=== PATIENT | male | born 1960 | race Hispanic/Latino ===

== ENCOUNTER → 2020-07-01 | Outpatient (CLI) | payer OTHER ==
[~2020-07-01] MED LIST: REGADENOSON 0.4 MG/5 ML PF SYG IVP SCH
== END | disposition home or self-care (01) ==
LOC: SHCH 07:46
PROVIDERS: ATTEND Internal Medicine Cardiovascular Disease
DX: I21.19 ST elevation (STEMI) myocardial infarction involving other coronary artery of inferior wall (principal); I21.29 ST elevation (STEMI) myocardial infarction involving other sites
CPT/HCPCS: 78452; 93017; 96374; A9500 ×2; J2785

== ENCOUNTER 2020-08-04 07:59 | Day surgery (SDC) | payer OTHER ==
[2020-08-02 12:47] LABS: BASOPHILS % (AUTO) 0.3 % (0.0-5.0); HEMATOCRIT 42.3 % (42-54); LYMPHOCYTES % (AUTO) 28.6 % (21.0-51.0); MEAN CORPUSCULAR HEMOGLOBIN 32.7 pg (27.0-33.0); MEAN CORPUSCULAR HGB CONC 36.2 g/dL (32.0-36.0); MEAN CORPUSCULAR VOLUME 90.4 fL (79-99); MONOCYTES % (AUTO) 8.9 % (3.0-13.0); NEUTROPHILS % (AUTO) 60.8 % (40.0-77.0); PLATELET COUNT (AUTO) 204 K/uL (130-400); RED BLOOD CELL COUNT(AUTO) 4.68 MIL/uL (4.50-6.20); RED CELL DISTRIBUTION WIDTH 13.2 % (11.0-15.5); WHITE BLOOD COUNT (AUTO) 9.1 K/uL (4.8-10.8)
[2020-08-02 13:03] LABS: INR 0.94 (0.85-1.15); PARTIAL THROMBOPLASTIN TIME 25.9 SEC (26.3-35.5); PROTHROMBIN TIME 10.2 SEC (9.6-11.6)
[2020-08-02 13:08] LABS: CREATININE 1.1 mg/dL (0.5-1.5); POTASSIUM 4.2 mmol/L (3.5-5.1)
[2020-08-02 13:25] LABS: APPEARANCE,URINE Clear (CLEAR); BILIRUBIN,URINE Negative (NEGATIVE); COLOR,URINE Yellow (YELLOW); GLUCOSE, URINE (UA) 250 mg/dL (NEGATIVE); KETONES,URINE Negative (NEGATIVE); LEUKOCYTE ESTERASE ,URINE Negative (NEGATIVE); NITRATE,URINE Negative (NEGATIVE); OCCULT BLOOD,URINE Negative (NEGATIVE); PROTEIN,URINE POS 2+ mg/dL (NEGATIVE)
[2020-08-02 14:11] LABS: BACTERIA,URINE Rare /HPF (None Seen); RBC,URINE 0-1 /HPF (0-1); SQUAMOUS EPITHELIAL CELL,UR Rare /HPF (0-2); WBC,URINE 0-1 /HPF (0-1)
[2020-08-03 11:49] VITALS: BP 163/80
--- NOTE | 2020-08-03 14:13 | NUR ---
ABnormal UA Elma Sears/Dr. Cobos was made aware of abnormal UA. No further orders given
[~2020-08-04] VITALS: Ht 188 cm; Wt 113.9 kg
[2020-08-04] VITALS (8 sets, daily range): BP systolic 135–153; BP diastolic 71–84
[2020-08-04] MEDS ORDERED: LORA10TA7 PO (10:35)
[2020-08-04] MEDS ORDERED: METO-409 PO (10:35)
[2020-08-04] MEDS ORDERED: TRAZ-187 PO (10:35)
[2020-08-04] MEDS ORDERED: LISI-613 PO (10:35)
[2020-08-04] MEDS ORDERED: NPH,100V11 SQ (10:35)
[2020-08-04] MEDS ORDERED: HYDR25TA PO (10:35)
[2020-08-04] MEDS ORDERED: TRAM50TA4 PO (10:35)
[2020-08-04] MEDS ORDERED: BUSP10TA3 PO (10:35)
[2020-08-04] MEDS ORDERED: GLIP5TAB11 PO ×2 (10:35)
[2020-08-04] MEDS ORDERED: METF-444 PO (10:35)
[2020-08-04] MEDS ORDERED: ATOR10TA69 PO (10:35)
[2020-08-04] MEDS ORDERED: AEC81 PO (10:35)
[2020-08-04] MEDS ORDERED: ALEN5TAB11 PO (10:35)
[2020-08-04] MEDS ORDERED: NITR0.4T50 SL (10:35)
[2020-08-04] MEDS ORDERED: METF-446 PO (10:35)
[2020-08-04] MEDS ORDERED: PROP150T28 PO (10:35)
[2020-08-04] MEDS ORDERED: POTA-9 PO (10:35)
[2020-08-04] MEDS ORDERED: SODIUM CHLORIDE 0.9% 1000ML 1,000 ML IV ONE (10:37)
[2020-08-04] MEDS ORDERED: IOHEXOL-350 50ML VIAL IV ONE (10:52)
[2020-08-04] MEDS ORDERED: IOHEXOL 350 MG/ML 100ML INFUS..BTL IV ONE (10:52)
[2020-08-04] MEDS ORDERED: LIDOCAINE HCL 2% 20ML ONE ×2 (10:52→11:08)
[2020-08-04] MEDS ORDERED: MIDAZOLAM HCL 1 MG/ML 2ML VIAL ONE (11:09)
[2020-08-04] MEDS ORDERED: GLUCAGON 1MG KIT 1 MG ML IM PRN (11:45)
[2020-08-04] MEDS ORDERED: DEXTROSE 50%-WATER 50 ML DISP.SYRIN IV PRN (11:45)
--- NOTE | 2020-08-04 14:10 | NUR ---
REPORT REPORT GIVEN TO JAI ORTIZ. PT SITE TO RIGHT GROIN SOFT TO TOUCH. DRY AND INTACT. NO BLEEDING, OOZING NOTED.
--- NOTE | 2020-08-04 14:30 | NUR ---
ACTIVITY: HOB ELEVATED 45 DEGRESS WITH NO COMPLAINTS OF NAUSEA OR DIZZINESS
--- NOTE | 2020-08-04 15:30 | NUR ---
ACTIVITY: AMBULATED TO BATHROOM WITHOUT COMPLAINING OF DIZZINESS AND VOIDED QS IN TOILET. ASSISTED BACK TO BED TO SITTING POSITION.
== END 2020-08-04 16:00 | disposition home or self-care (01) ==
LOC: DAH 07:59
PROVIDERS: ATTEND Internal Medicine Cardiovascular Disease
DX: R94.39 Abnormal result of other cardiovascular function study (principal); I47.1 Supraventricular tachycardia; I25.10 Atherosclerotic heart disease of native coronary artery without angina pectoris; I10 Essential (primary) hypertension; E78.5 Hyperlipidemia, unspecified; E11.9 Type 2 diabetes mellitus without complications; Z79.4 Long term (current) use of insulin; Z79.84 Long term (current) use of oral hypoglycemic drugs; Z79.01 Long term (current) use of anticoagulants; Z79.899 Other long term (current) drug therapy; Z88.0 Allergy status to penicillin
CPT/HCPCS: 36415; 71045; 80048; 81001; 82948 ×2; 85025; 85610; 85730; 93005; 93458; A4215; A4216; A4221; A4222; A4223 ×3; A4606; A4663; C1760; C1894; J1644; J2250; J3490 ×2; J7030; Q9965; Q9967 ×2; 99156; 99157

== ENCOUNTER 2021-07-28 13:00 | Inpatient (IN) | payer OTHER ==
[~2021-07-28] VITALS: Ht 188 cm; Wt 112.0 kg
[2021-07-28 09:45] LABS: BASOPHILS % (AUTO) 0.5 % (0.0-5.0); EOSINOPHILS % (AUTO) 1.2 % (0.0-8.0); HEMATOCRIT 40.4 % (42-54); LYMPHOCYTES % (AUTO) 28.8 % (21.0-51.0); MEAN CORPUSCULAR HEMOGLOBIN 32.5 pg (27.0-33.0); MEAN CORPUSCULAR HGB CONC 35.9 g/dL (32.0-36.0); MEAN CORPUSCULAR VOLUME 90.6 fL (79-99); MONOCYTES % (AUTO) 9.2 % (3.0-13.0); NEUTROPHILS % (AUTO) 59.8 % (40.0-77.0); PLATELET COUNT (AUTO) 186 K/uL (130-400); RED BLOOD CELL COUNT(AUTO) 4.46 MIL/uL (4.50-6.20); WHITE BLOOD COUNT (AUTO) 8.3 K/uL (4.8-10.8)
[2021-07-28 10:06] LABS: INR 1.05 (0.85-1.15); PROTHROMBIN TIME 11.4 SEC (9.6-11.6)
[2021-07-28 10:16] LABS: APPEARANCE,URINE Clear (CLEAR); BILIRUBIN,URINE Negative (NEGATIVE); COLOR,URINE Yellow (YELLOW); GLUCOSE, URINE (UA) TRACE mg/dL (NEGATIVE); KETONES,URINE Negative (NEGATIVE); LEUKOCYTE ESTERASE ,URINE Negative (NEGATIVE); NITRATE,URINE Negative (NEGATIVE); OCCULT BLOOD,URINE Negative (NEGATIVE); PROTEIN,URINE POS 1+ mg/dL (NEGATIVE); UROBILINOGEN,URINE 0.2 mg/dL (0.2-1.0)
[2021-07-28 10:17] LABS: POTASSIUM 4.4 mmol/L (3.5-5.1)
[2021-07-28 10:24] LABS: BACTERIA,URINE Rare /HPF (None Seen); RBC,URINE None Seen /HPF (0-1); SQUAMOUS EPITHELIAL CELL,UR 0-2 /HPF (0-2); WBC,URINE None Seen /HPF (0-1)
[~2021-07-28 13:00] MED LIST changes: +AEC81 PO; +ATOR10TA69 PO; +BUSP10TA3 PO; +GLIP5TAB11 PO; +HYDR25TA PO; +LISI20TA24 PO; +LORA10TA7 PO; +METF-444 PO; +METF-446 PO; +METO-409 PO; +NPH,100V11 SQ; +POTA-9 PO; +PROP150T28 PO; -REGADENOSON 0.4 MG/5 ML PF SYG IVP SCH; +TRAM50TA4 PO
[2021-07-28 15:01] VITALS: BP 137/67
[2021-07-28] MEDS ORDERED: trazodone PO (16:12)
[2021-07-28] MEDS ORDERED: ISOSORBIDE MONO PO (16:14)
[2021-07-31] VITALS (20 sets, daily range): BP systolic 111–147; BP diastolic 58–85
[2021-07-31] MEDS ORDERED: 0.9%NACL 1000ML 1,000 ML IV ONE (09:29)
[2021-07-31] MEDS ORDERED: CLINDAMYCIN 900MG/6ML INJ ONE (09:29)
[2021-07-31] MEDS: CLINDAMYCIN IVPB 900MG/50ML 50 ML IV SCH ×2 (09:56→10:40)
[2021-07-31] MEDS ORDERED: SUCCINYLCHOLINE CHLORIDE 20 MG/ML 10 ML VIAL ONE (10:33)
[2021-07-31] MEDS ORDERED: LIDOCAINE PF 100MG/5ML (2%) SYRINGE 5ML ONE (10:33)
[2021-07-31] MEDS ORDERED: PROPOFOL 10 MG/ML 20ML VIAL IV ONE (10:33)
[2021-07-31] MEDS ORDERED: ROCURONIUM 10MG/1ML SYR 10 MG/ML ML ONE ×2 (10:34→11:28)
[2021-07-31] MEDS ORDERED: GLYCOPYRROLATE 1 MG/5 ML SYRINGE ONE (10:34)
[2021-07-31] MEDS ORDERED: NEOSTIGMINE 5MG/5ML SYR IV ONE (10:34)
[2021-07-31] MEDS ORDERED: MIDAZOLAM HCL 1 MG/ML 2ML VIAL ONE (10:34)
[2021-07-31] MEDS ORDERED: ONDANSETRON 4MG INJ ONE (10:34)
[2021-07-31] MEDS ORDERED: DEXAMETHASONE SOD PHOSPHATE 10MG/ML 1ML VIAL ONE (10:34)
[2021-07-31] MEDS ORDERED: FENTANYL CITRATE PF 50 MCG/1 ML 2ML VIAL ONE ×2 (10:35→12:54)
[2021-07-31] MEDS ORDERED: MEPERIDINE-PF 25 MG/ML SYG ONE ×3 (10:35→13:54)
[2021-07-31] MEDS ORDERED: TRANEXAMIC ACID 1000MG/10ML ONE ×2 (10:41→13:09)
[2021-07-31] MEDS ORDERED: EPHEDRINE SULFATE 50 MG/ML AMPULE ONE ×2 (10:55→13:40)
[2021-07-31] MEDS ORDERED: PHENYLEPHRINE HCL 10 MG/ML 1ML VIAL IV ONE (11:23)
[2021-07-31] MEDS ORDERED: LIDOCAINE HCL-MPF 1% 2ML VIAL IV PRN (13:00)
[2021-07-31] MEDS ORDERED: KETOROLAC 15MG/ML VIAL (15MG/ML) IV PRN (13:00)
[2021-07-31] MEDS ORDERED: CALCIUM CARB 500MG PO PRN (13:00)
[2021-07-31] MEDS: ACETAMINOPHEN 500 MG TABLET PO SCH ×2 (13:00→22:12)
[2021-07-31] MEDS ORDERED: OXYCODONE HCL 5 MG TAB PO PRN ×2 (13:00)
[2021-07-31] MEDS ORDERED: DiphenhydrAMINE HCL 50 MG/ML VIAL IVP PRN (13:00)
[2021-07-31] MEDS ORDERED: KCL 20 MEQ ERTAB PO PRN (13:00)
[2021-07-31] MEDS ORDERED: POTASSIUM CHLORIDE 10% ELIXIR 20 MEQ/15 ML UDCUP PO PRN (13:00)
[2021-07-31] MEDS ORDERED: POTASSIUM CHLORIDE 20MEQ/100ML 100 ML IV PRN (13:00)
[2021-07-31] MEDS: 0.9%NACL 1000ML 1,000 ML IV SCH ×2 (13:00→22:16)
[2021-07-31] MEDS ORDERED: TRAMADOL HCL 50 MG TABLET PO PRN (13:00)
[2021-07-31] MEDS ORDERED: ONDANSETRON 4MG INJ IVP PRN (13:00)
[2021-07-31] MEDS ORDERED: FERROUS FUMARATE 324 MG TABLET PO PRN (13:00)
[2021-07-31] MEDS ORDERED: KETOROLAC 30MG VIAL (30MG/ML) ONE (13:26)
[2021-07-31] MEDS ORDERED: ARTIFICAL TEARS SOL 15 ML OU PRN (16:00)
[2021-07-31] MEDS: INSULIN HUMULIN R 100 UNIT/ML 3ML SQ SCH ×2 (16:54→22:22)
[2021-07-31] MEDS ORDERED: CLINDAMYCIN IVPB 900MG/50ML 50 ML IVPB SCH (18:00)
[2021-07-31] MEDS: TRAZODONE HCL 50 MG TAB PO SCH (22:05)
[2021-07-31] MEDS: BUSPIRONE HCL 5 MG TABLET PO SCH (22:05)
[2021-07-31] MEDS: CELECOXIB 200 MG CAP PO SCH (22:05)
[2021-07-31] MEDS: ASPIRIN 81 MG EC TAB PO SCH (22:06)
[2021-07-31] MEDS: METFORMIN HCL 500 MG TABLET PO SCH (22:06)
[2021-07-31] MEDS: FAMOTIDINE 20MG TAB PO SCH (22:06)
[2021-07-31] MEDS: GLIPIZIDE 5 MG TABLET PO SCH (22:07)
[2021-07-31] MEDS: PREGABALIN 25 MG CAP PO SCH (22:07)
[2021-07-31] MEDS: PROPAFENONE HCL 150 MG TABLET PO SCH (22:07)
[2021-07-31] MEDS: CLINDAMYCIN IVPB 900MG/50ML 50 ML IVPB SCH (22:16)
[2021-07-31] MEDS: INSULIN NPH 100 UNIT/ML 3ML SQ SCH (22:21)
[2021-08-01 04:04] VITALS: BP 109/58
[2021-08-01] MEDS: ACETAMINOPHEN 500 MG TABLET PO SCH ×3 (04:49→23:08)
[2021-08-01] MEDS: CLINDAMYCIN IVPB 900MG/50ML 50 ML IVPB SCH (04:49)
[2021-08-01 05:26] LABS: HEMATOCRIT 29.4 % (42-54); MEAN CORPUSCULAR HEMOGLOBIN 32.8 pg (27.0-33.0); MEAN CORPUSCULAR HGB CONC 36.4 g/dL (32.0-36.0); MEAN CORPUSCULAR VOLUME 90.2 fL (79-99); PLATELET COUNT (AUTO) 169 K/uL (130-400); RED BLOOD CELL COUNT(AUTO) 3.26 MIL/uL (4.50-6.20); RED CELL DISTRIBUTION WIDTH 12.8 % (11.0-15.5)
[2021-08-01 05:45] LABS: CREATININE 1.2 mg/dL (0.5-1.5); POTASSIUM 4.3 mmol/L (3.5-5.1)
[2021-08-01 05:56] LABS: PLATELET MORPHOLOGY LARGE PLTS PRESENT
[2021-08-01] MEDS: INSULIN HUMULIN R 100 UNIT/ML 3ML SQ SCH ×4 (06:42→21:00)
[2021-08-01 07:30] VITALS: BP 95/48
[2021-08-01] MEDS: POTASSIUM CHLORIDE 10MEQ SR TAB PO SCH (08:15)
[2021-08-01] MEDS: LORATADINE 10 MG TABLET PO SCH (08:15)
[2021-08-01] MEDS: POLYETHYLENE GLYCOL 3350 17 GM POWD.PACK PO SCH (08:15)
[2021-08-01] MEDS: CELECOXIB 200 MG CAP PO SCH ×2 (08:15→23:07)
[2021-08-01] MEDS: TAMSULOSIN HCL 0.4 MG CAP.ER.24H PO SCH (08:16)
[2021-08-01] MEDS: BUSPIRONE HCL 5 MG TABLET PO SCH ×2 (08:16→23:07)
[2021-08-01] MEDS: ASPIRIN 81 MG EC TAB PO SCH ×2 (08:16→23:05)
[2021-08-01] MEDS: FAMOTIDINE 20MG TAB PO SCH ×2 (08:16→23:08)
[2021-08-01] MEDS: METFORMIN HCL 500 MG TABLET PO SCH ×2 (08:17→23:07)
[2021-08-01] MEDS: ATORVASTATIN 10 MG TABLET PO SCH (08:17)
[2021-08-01] MEDS: PREGABALIN 25 MG CAP PO SCH ×2 (08:17→23:06)
[2021-08-01] MEDS: GLIPIZIDE 5 MG TABLET PO SCH ×2 (08:17→23:06)
[2021-08-01] MEDS: HYDROCHLOROTHIAZIDE 25 MG TABLET PO SCH (08:17)
[2021-08-01] MEDS: PROPAFENONE HCL 150 MG TABLET PO SCH ×2 (08:18→23:07)
[2021-08-01] MEDS: 0.9%NACL 1000ML 1,000 ML IV SCH (08:18)
[2021-08-01] MEDS: LISINOPRIL 20 MG TABLET PO SCH (08:18)
[2021-08-01] MEDS: ISOSORBIDE MONO 30MG SR TAB PO SCH (08:18)
[2021-08-01] MEDS: METOPROLOL SUCCINATE 50 MG TAB.SR.24H PO SCH (08:18)
[2021-08-01] MEDS ORDERED: ASPIRIN 81 MG EC TAB PO SCH (09:00)
[2021-08-01 11:00] VITALS: BP 101/53
[2021-08-01 16:00] VITALS: BP 114/62
[2021-08-01 20:10] VITALS: BP 119/65
[2021-08-01] MEDS: TRAZODONE HCL 50 MG TAB PO SCH (23:06)
[2021-08-01] MEDS: INSULIN NPH 100 UNIT/ML 3ML SQ SCH (23:17)
[2021-08-01 23:45] VITALS: BP 138/68
[2021-08-02 04:08] VITALS: BP 132/67
[2021-08-02] MEDS: INSULIN HUMULIN R 100 UNIT/ML 3ML SQ SCH ×3 (05:56→16:30)
[2021-08-02] MEDS: ACETAMINOPHEN 500 MG TABLET PO SCH ×2 (05:59→12:41)
[2021-08-02 07:30] VITALS: BP 132/52
[2021-08-02] MEDS: POLYETHYLENE GLYCOL 3350 17 GM POWD.PACK PO SCH (08:17)
[2021-08-02] MEDS: PREGABALIN 25 MG CAP PO SCH (08:17)
[2021-08-02] MEDS: TAMSULOSIN HCL 0.4 MG CAP.ER.24H PO SCH (08:18)
[2021-08-02] MEDS: CELECOXIB 200 MG CAP PO SCH (08:18)
[2021-08-02] MEDS: FAMOTIDINE 20MG TAB PO SCH (08:19)
[2021-08-02] MEDS: BUSPIRONE HCL 5 MG TABLET PO SCH (08:19)
[2021-08-02] MEDS: LORATADINE 10 MG TABLET PO SCH (08:19)
[2021-08-02] MEDS: ASPIRIN 81 MG EC TAB PO SCH (08:19)
[2021-08-02] MEDS: ATORVASTATIN 10 MG TABLET PO SCH (08:20)
[2021-08-02] MEDS: METFORMIN HCL 500 MG TABLET PO SCH (08:20)
[2021-08-02] MEDS: POTASSIUM CHLORIDE 10MEQ SR TAB PO SCH (08:20)
[2021-08-02] MEDS: PROPAFENONE HCL 150 MG TABLET PO SCH (08:21)
[2021-08-02] MEDS: GLIPIZIDE 5 MG TABLET PO SCH (08:21)
[2021-08-02] MEDS: HYDROCHLOROTHIAZIDE 25 MG TABLET PO SCH (09:00)
[2021-08-02] MEDS: LISINOPRIL 20 MG TABLET PO SCH (09:00)
[2021-08-02] MEDS: METOPROLOL SUCCINATE 50 MG TAB.SR.24H PO SCH (09:00)
[2021-08-02] MEDS: ISOSORBIDE MONO 30MG SR TAB PO SCH (09:00)
[2021-08-02 11:00] VITALS: BP 115/67
[2021-08-02 16:00] VITALS: BP 117/60
[2021-08-02] MEDS ORDERED: HYDR-4060 PO (16:10)
[2021-08-02] MEDS ORDERED: AEC81 PO (16:10)
[2021-08-03] MEDS ORDERED: BISACODYL 10 MG SUPP.RECT RC PRN (13:00)
== END 2021-08-02 19:00 | disposition home health service (06) | DRG 470 ==
LOC: EDSTATUS 13:00 → DAHIP 07-31 07:39 → 3AH 07-31 15:18
PROVIDERS: ADMIT Orthopaedic Surgery; ATTEND Orthopaedic Surgery
PROC: 0SRD0J9 Replacement of Left Knee Joint with Synthetic Substitute, Cemented, Open Approach (ICD-10-PCS; principal; 2021-07-31 11:28)
DX: M17.32 Unilateral post-traumatic osteoarthritis, left knee (principal); I48.0 Paroxysmal atrial fibrillation; E11.9 Type 2 diabetes mellitus without complications; I25.10 Atherosclerotic heart disease of native coronary artery without angina pectoris; I10 Essential (primary) hypertension; E78.5 Hyperlipidemia, unspecified; M17.11 Unilateral primary osteoarthritis, right knee; R26.89 Other abnormalities of gait and mobility; M23.8X2 Other internal derangements of left knee; G89.29 Other chronic pain; Z20.822 Contact with and (suspected) exposure to COVID-19; Z96.9 Presence of functional implant, unspecified; D64.9 Anemia, unspecified; Z88.0 Allergy status to penicillin; Z98.890 Other specified postprocedural states; Z83.3 Family history of diabetes mellitus; Z82.49 Family history of ischemic heart disease and other diseases of the circulatory system
CPT/HCPCS: 36415; 80048; 81001; 82948; 85025; 85027; 85610; 87088; 87635; 87641; 88305; 88311; 97039; A4344; G0378; J0330; J1100; J1815; J1885; J2001; J2175; J2250; J2370; J2405; J2704; J2710; J3010; J3490; J7030

== ENCOUNTER 2022-05-30 17:59 | Inpatient (IN) | payer OTHER ==
[~2022-05-30] VITALS: Ht 188 cm; Wt 104.3 kg
[~2022-05-30 17:59] MED LIST changes: +HYDR-4060 PO; +ISOSORBIDE MONO PO; +POTA-10 PO; -POTA-9 PO; +trazodone PO
[2022-05-30] MEDS ORDERED: NITROGLYCERIN 1GM OINT 1 INCH/1GM TD ONE ×2 (18:22→19:00)
[2022-05-30 18:57] LABS: BASOPHILS % (AUTO) 0.5 % (0.0-5.0); MEAN CORPUSCULAR HEMOGLOBIN 32.3 pg (27.0-33.0); MEAN CORPUSCULAR HGB CONC 36.4 g/dL (32.0-36.0); MEAN CORPUSCULAR VOLUME 88.8 fL (79-99); MONOCYTES % (AUTO) 8.6 % (3.0-13.0); NEUTROPHILS % (AUTO) 55.6 % (40.0-77.0); PLATELET COUNT (AUTO) 195 K/uL (130-400); RED BLOOD CELL COUNT(AUTO) 4.73 MIL/uL (4.50-6.20); WHITE BLOOD COUNT (AUTO) 10.6 K/uL (4.8-10.8)
[2022-05-30 19:10] LABS: CREATININE 0.9 mg/dL (0.5-1.5); POTASSIUM 3.2 mmol/L (3.5-5.1)
[2022-05-30 19:19] LABS: ALBUMIN 3.8 g/dL (3.5-5.0); MAGNESIUM 1.8 mg/dL (1.80-2.40); TOTAL PROTEIN, SERUM 6.8 g/dL (6.0-8.3)
[2022-05-30 19:25] LABS: APPEARANCE,URINE Clear (CLEAR); BILIRUBIN,URINE Small (NEGATIVE); COLOR,URINE Dark Yellow (YELLOW); GLUCOSE, URINE (UA) Negative (NEGATIVE); KETONES,URINE Trace mg/dL (NEGATIVE); LEUKOCYTE ESTERASE ,URINE Negative (NEGATIVE); NITRATE,URINE Negative (NEGATIVE); OCCULT BLOOD,URINE Negative (NEGATIVE); PH,URINE 5.5 (5.0-8.0); PROTEIN,URINE 300 mg/dL (NEGATIVE)
[2022-05-30 19:27] LABS: B-TYPE NATRIURETIC PEPTIDE 111 pg/mL (0-100)
[2022-05-30 19:51] LABS: INR 0.97 (0.85-1.15); PROTHROMBIN TIME 10.6 SEC (9.6-11.6)
[2022-05-30 19:52] LABS: PARTIAL THROMBOPLASTIN TIME 26.5 SEC (26.3-35.5)
[2022-05-30 20:13] LABS: BACTERIA,URINE None Seen /HPF (None Seen); MUCUS,URINE Rare LPF (None Seen); RBC,URINE None Seen /HPF (0-1); SQUAMOUS EPITHELIAL CELL,UR Rare /HPF (0-2); WBC,URINE None Seen /HPF (0-1)
[2022-05-30] MEDS: FAMOTIDINE 20MG VIAL IV SCH (20:55)
[2022-05-30] MEDS ORDERED: ASPIRIN 81MG CHEW TAB PO ONE (21:00)
[2022-05-30] MEDS ORDERED: ACETAMINOPHEN 325 MG TAB PO PRN (21:00)
[2022-05-30] MEDS ORDERED: CLONIDINE HCL 0.1 MG TABLET PO PRN (21:00)
[2022-05-30] MEDS ORDERED: MORPHINE 2 MG SYG IV PRN (21:00)
[2022-05-30] MEDS: NITROGLYCERIN 1GM OINT 1 INCH/1GM TD SCH (21:00)
[2022-05-30] MEDS ORDERED: ZOLPIDEM TARTRATE 5 MG TAB PO PRN (21:00)
[2022-05-30] MEDS ORDERED: ONDANSETRON 4MG INJ IV PRN (21:00)
[2022-05-30] MEDS ORDERED: MORPHINE 4 MG SYG IV PRN (21:00)
[2022-05-30] MEDS ORDERED: GLIP5TAB11 PO (21:07)
[2022-05-30] MEDS ORDERED: METO-409 PO (21:07)
[2022-05-30] MEDS ORDERED: PROP150T28 PO (21:07)
[2022-05-30] MEDS ORDERED: ISOS10TA8 PO (21:07)
[2022-05-30] MEDS ORDERED: SERT-439 PO (21:07)
[2022-05-30] MEDS ORDERED: LORA10TA7 PO (21:07)
[2022-05-30] MEDS ORDERED: ASPI-1197 PO (21:07)
[2022-05-30] MEDS ORDERED: TRAM50TA4 PO (21:07)
[2022-05-30] MEDS ORDERED: BUSP15TA3 PO (21:07)
[2022-05-30] MEDS ORDERED: TRAZ-187 PO (21:07)
[2022-05-30] MEDS ORDERED: ATOR10 PO (21:07)
[2022-05-30] MEDS ORDERED: METF-446 PO (21:07)
[2022-05-30] MEDS ORDERED: TRAMADOL HCL 50 MG TABLET PO PRN (21:30)
[2022-05-30] MEDS ORDERED: HYDRALAZINE 20MG/ML VIAL ONE (22:20)
[2022-05-30] MEDS ORDERED: HYDRALAZINE 20MG/ML VIAL IV ONE (22:30)
[2022-05-31] MEDS ORDERED: POTASSIUM CHLORIDE 10% ELIXIR 20 MEQ/15 ML UDCUP PO PRN
[2022-05-31] MEDS ORDERED: POTASSIUM CHLORIDE 20MEQ/100ML 100 ML IV PRN
[2022-05-31] MEDS ORDERED: LIDOCAINE HCL-MPF 1% 2ML VIAL IV PRN
[2022-05-31] MEDS ORDERED: POTASSIUM BICARB/CIT AC 25 MEQ TABLET.EFF PO ONE
[2022-05-31] MEDS ORDERED: KCL 20 MEQ ERTAB PO PRN
[2022-05-31] MEDS: NITROGLYCERIN 1GM OINT 1 INCH/1GM TD SCH (05:27)
[2022-05-31 06:01] LABS: BASOPHILS % (AUTO) 0.5 % (0.0-5.0); EOSINOPHILS % (AUTO) 1.2 % (0.0-8.0); HEMATOCRIT 40.2 % (42-54); LYMPHOCYTES % (AUTO) 30.2 % (21.0-51.0); MEAN CORPUSCULAR HEMOGLOBIN 32.7 pg (27.0-33.0); MEAN CORPUSCULAR HGB CONC 36.8 g/dL (32.0-36.0); MEAN CORPUSCULAR VOLUME 88.7 fL (79-99); MONOCYTES % (AUTO) 10.1 % (3.0-13.0); NEUTROPHILS % (AUTO) 57.6 % (40.0-77.0); PLATELET COUNT (AUTO) 176 K/uL (130-400); RED BLOOD CELL COUNT(AUTO) 4.53 MIL/uL (4.50-6.20); RED CELL DISTRIBUTION WIDTH 13.1 % (11.0-15.5); WHITE BLOOD COUNT (AUTO) 9.4 K/uL (4.8-10.8)
[2022-05-31 06:08] LABS: HEMOGLOBIN A1C 5.9 % (4.0-6.0)
[2022-05-31 06:11] LABS: CREATININE 0.8 mg/dL (0.5-1.5); MAGNESIUM 1.8 mg/dL (1.80-2.40); POTASSIUM 3.4 mmol/L (3.5-5.1)
[2022-05-31] MEDS: INSULIN HUMULIN R 100 UNIT/ML 3ML SQ SCH ×3 (07:20→16:30)
[2022-05-31 08:20] VITALS: BP 170/79
[2022-05-31] MEDS: FAMOTIDINE 20MG VIAL IV SCH (08:25)
[2022-05-31] MEDS ORDERED: MAGNESIUM OXIDE 400 MG TABLET PO SCH (08:30)
[2022-05-31] MEDS ORDERED: ISOSORBIDE MONONITRATE 15 MG PO SCH (09:00)
[2022-05-31] MEDS ORDERED: ENOXAPARIN SODIUM 40 MG/0.4 ML SYRINGE SQ SCH (09:00)
[2022-05-31] MEDS ORDERED: ISOSORBIDE MONO 30MG SR TAB PO SCH (09:00)
[2022-05-31] MEDS ORDERED: PROPAFENONE HCL 150 MG TABLET PO SCH (09:00)
[2022-05-31] MEDS ORDERED: NON-FORMULARY MEDICATION 1 EACH (Metoprolol Succinate 100 MG) PO SCH (09:00)
[2022-05-31] MEDS ORDERED: NON-FORMULARY MEDICATION 1 EACH (Buspirone HCl 15 MG) PO SCH (09:00)
[2022-05-31] MEDS ORDERED: BUSPIRONE HCL 5 MG TABLET PO SCH (09:00)
[2022-05-31] MEDS ORDERED: ASPIRIN 81MG CHEW TAB PO SCH (09:00)
[2022-05-31] MEDS ORDERED: METOPROLOL SUCCINATE 50 MG TAB.SR.24H PO SCH (09:00)
[2022-05-31] MEDS ORDERED: KCL 20 MEQ ERTAB PO SCH (09:30)
[2022-05-31 09:50] VITALS: BP 134/64
[2022-05-31 12:18] VITALS: BP 130/70
[2022-05-31 16:00] VITALS: BP 158/80
[2022-05-31] MEDS ORDERED: GLIP5TAB11 PO (17:35)
[2022-05-31] MEDS ORDERED: TRAZODONE HCL 100 MG TABLET PO SCH (21:00)
[2022-05-31] MEDS ORDERED: SERTRALINE HCL 50 MG TABLET PO SCH (21:00)
[2022-05-31] MEDS ORDERED: ATORVASTATIN 10 MG TABLET PO SCH (21:00)
== END 2022-05-31 18:30 | disposition home or self-care (01) | DRG 206 ==
LOC: EDH 17:59 → EDHIP 20:31 → 3AH 05-31 08:00
PROVIDERS: ADMIT Internal Medicine; ATTEND Internal Medicine
DX: M94.0 Chondrocostal junction syndrome [Tietze] (principal); E87.6 Hypokalemia; I10 Essential (primary) hypertension; E78.5 Hyperlipidemia, unspecified; I48.91 Unspecified atrial fibrillation; E78.00 Pure hypercholesterolemia, unspecified; I25.10 Atherosclerotic heart disease of native coronary artery without angina pectoris; Z83.3 Family history of diabetes mellitus; Z82.5 Family history of asthma and other chronic lower respiratory diseases; Z82.49 Family history of ischemic heart disease and other diseases of the circulatory system; Z96.652 Presence of left artificial knee joint; Z88.0 Allergy status to penicillin; E11.649 Type 2 diabetes mellitus with hypoglycemia without coma; Z79.4 Long term (current) use of insulin
CPT/HCPCS: 36415; 70450; 71045; 80048; 80053; 81001; 82550; 82948; 83036; 83735; 83880; 84100; 84145; 84484; 85025; 85610; 85730; 93005; G0378; J0360; J1650; J3490

== ENCOUNTER → 2022-08-02 | Outpatient (CLI) | payer OTHER ==
[~2022-08-02] MED LIST changes: -AEC81 PO; +ASPI-1197 PO; +ATOR10 PO; -ATOR10TA69 PO; -BUSP10TA3 PO; +BUSP15TA3 PO; -HYDR-4060 PO; -HYDR25TA PO; +ISOS10TA8 PO; -ISOSORBIDE MONO PO; -LISI20TA24 PO; -METF-444 PO; -NPH,100V11 SQ; -POTA-10 PO; +SERT-439 PO; +TRAZ-187 PO; -trazodone PO
== END | disposition home or self-care (01) ==
LOC: OIH 13:07
PROVIDERS: ATTEND Internal Medicine Cardiovascular Disease
DX: I48.0 Paroxysmal atrial fibrillation (principal)
CPT/HCPCS: 93306

== ENCOUNTER → 2022-10-29 | Outpatient (CLI) | payer OTHER ==
[2022-10-29 11:49] LABS: CREATININE 0.9 mg/dL (0.5-1.5)
== END | disposition home or self-care (01) ==
LOC: LAB 08:23
PROVIDERS: ATTEND Internal Medicine Cardiovascular Disease
DX: I48.0 Paroxysmal atrial fibrillation (principal)
CPT/HCPCS: 36415; 80048

== ENCOUNTER 2022-11-29 12:21 | Emergency (ER) | payer OTHER ==
[~2022-11-29] VITALS: Ht 188 cm; Wt 99.8 kg
[2022-11-29 12:46] LABS: BASOPHILS % (AUTO) 0.3 % (0.0-5.0); EOSINOPHILS % (AUTO) 1.3 % (0.0-8.0); HEMATOCRIT 42.1 % (42-54); LYMPHOCYTES % (AUTO) 31.9 % (21.0-51.0); MEAN CORPUSCULAR HEMOGLOBIN 30.9 pg (27.0-33.0); MEAN CORPUSCULAR HGB CONC 36.6 g/dL (32.0-36.0); MEAN CORPUSCULAR VOLUME 84.5 fL (79-99); MONOCYTES % (AUTO) 9.6 % (3.0-13.0); NEUTROPHILS % (AUTO) 56.7 % (40.0-77.0); PLATELET COUNT (AUTO) 206 K/uL (130-400); RED BLOOD CELL COUNT(AUTO) 4.98 MIL/uL (4.50-6.20); RED CELL DISTRIBUTION WIDTH 13.4 % (11.0-15.5); WHITE BLOOD COUNT (AUTO) 8.9 K/uL (4.8-10.8)
[2022-11-29 12:55] LABS: INR 0.99 (0.85-1.15); PROTHROMBIN TIME 10.8 SEC (9.6-11.6)
[2022-11-29 13:13] LABS: CREATININE 0.9 mg/dL (0.5-1.5); POTASSIUM 4.1 mmol/L (3.5-5.1)
[2022-11-29 13:17] LABS: TOTAL PROTEIN, SERUM 7.3 g/dL (6.0-8.3)
[2022-11-29] MEDS ORDERED: ALBUTEROL 0.083% 2.5 MG/3 ML INH IH ONE (14:30)
[2022-11-29] MEDS ORDERED: AZIT250T9 PO (14:37)
[2022-11-29] MEDS ORDERED: ALBU90AE2 IH (15:04)
[2022-11-29 15:07] VITALS: BP 128/83
[2022-11-29 15:09] LABS: APPEARANCE,URINE CLEAR (CLEAR); BILIRUBIN,URINE NEGATIVE (NEGATIVE); COLOR,URINE YELLOW (YELLOW); GLUCOSE, URINE (UA) NEGATIVE (NEGATIVE); KETONES,URINE NEGATIVE (NEGATIVE); LEUKOCYTE ESTERASE ,URINE NEGATIVE Leu/uL (NEGATIVE); NITRATE,URINE NEGATIVE (NEGATIVE); OCCULT BLOOD,URINE NEGATIVE (NEGATIVE); PROTEIN,URINE 200 mg/dL (NEGATIVE); UROBILINOGEN,URINE 0.2 mg/dL (0.2-1.0)
[2022-11-29 15:11] LABS: MUCUS,URINE RARE LPF (None Seen); WBC,URINE 0-1 /HPF (0-1)
== END 2022-11-29 15:25 | disposition home or self-care (01) ==
LOC: EDH 12:21
DX: J40 Bronchitis, not specified as acute or chronic (principal); I25.10 Atherosclerotic heart disease of native coronary artery without angina pectoris; E11.9 Type 2 diabetes mellitus without complications; E78.00 Pure hypercholesterolemia, unspecified; Z79.899 Other long term (current) drug therapy; Z79.82 Long term (current) use of aspirin; Z79.84 Long term (current) use of oral hypoglycemic drugs; Z98.890 Other specified postprocedural states; Z88.0 Allergy status to penicillin
CPT/HCPCS: 36415; 71045; 80053; 81001; 83880; 84484; 85025; 85610; 93005; 94640

== ENCOUNTER 2023-01-10 11:44 | Emergency (ER) | payer OTHER ==
[~2023-01-10] VITALS: Ht 188 cm; Wt 99.8 kg
[~2023-01-10 11:44] MED LIST changes: +ALBU90AE2 IH; +AZIT250T9 PO
[2023-01-10] MEDS ORDERED: ACETAMINOPHEN WITH CODEINE 1 TAB TAB PO ONE (14:00)
[2023-01-10] MEDS ORDERED: ACET-2079 PO (14:57)
[2023-01-10 15:35] VITALS: BP 138/76
== END 2023-01-10 15:50 | disposition home or self-care (01) ==
LOC: EDH 11:44
DX: S22.41XA Multiple fractures of ribs, right side, initial encounter for closed fracture (principal); I10 Essential (primary) hypertension; E78.00 Pure hypercholesterolemia, unspecified; I48.91 Unspecified atrial fibrillation; E11.9 Type 2 diabetes mellitus without complications; Z88.0 Allergy status to penicillin; Z79.899 Other long term (current) drug therapy; W18.30XA Fall on same level, unspecified, initial encounter; Y93.89 Activity, other specified; Y92.89 Other specified places as the place of occurrence of the external cause; Y99.8 Other external cause status
CPT/HCPCS: 71101

== ENCOUNTER → 2023-01-19 | Outpatient (CLI) | payer OTHER ==
[~2023-01-19] MED LIST changes: +ACET-2079 PO
== END | disposition home or self-care (01) ==
LOC: SHCH 11:24
PROVIDERS: ATTEND Internal Medicine Cardiovascular Disease
DX: G45.1 Carotid artery syndrome (hemispheric) (principal)
CPT/HCPCS: 93880

== ENCOUNTER 2023-05-27 09:55 | Emergency (ER) | payer OTHER ==
[~2023-05-27] VITALS: Ht 188 cm; Wt 98.4 kg
[2023-05-27] MEDS ORDERED: MECL-160 PO (10:21)
[2023-05-27] MEDS ORDERED: MECLIZINE HCL 25 MG TABLET PO ONE (10:30)
[2023-05-27 12:10] VITALS: BP 138/72
== END 2023-05-27 12:27 | disposition home or self-care (01) ==
LOC: EDH 09:55
DX: S09.90XA Unspecified injury of head, initial encounter (principal); H81.10 Benign paroxysmal vertigo, unspecified ear; I10 Essential (primary) hypertension; E11.9 Type 2 diabetes mellitus without complications; I48.91 Unspecified atrial fibrillation; Z88.0 Allergy status to penicillin; Z79.84 Long term (current) use of oral hypoglycemic drugs; Z79.899 Other long term (current) drug therapy; W18.30XA Fall on same level, unspecified, initial encounter; Y93.89 Activity, other specified; Y92.89 Other specified places as the place of occurrence of the external cause; Y99.8 Other external cause status
CPT/HCPCS: 70450; 93005

== ENCOUNTER → 2023-12-06 | Outpatient (CLI) | payer OTHER ==
[~2023-12-06] MED LIST changes: -GLIP5TAB11 PO; +GLIP5TAB15 PO; +MECL-302 PO; +REGADENOSON 0.4 MG/5 ML PF SYG IVP ONE
== END | disposition home or self-care (01) ==
LOC: SHCH 08:13
PROVIDERS: ATTEND Internal Medicine Cardiovascular Disease
DX: I25.10 Atherosclerotic heart disease of native coronary artery without angina pectoris (principal); I51.7 Cardiomegaly; I25.9 Chronic ischemic heart disease, unspecified; I47.10 Supraventricular tachycardia, unspecified
CPT/HCPCS: 78452; 96374; 93017; J2785; A9500 ×2

== ENCOUNTER → 2024-02-07 | Outpatient (CLI) | payer OTHER ==
[~2024-02-07] MED LIST changes: +MECL-160 PO; -MECL-302 PO; -REGADENOSON 0.4 MG/5 ML PF SYG IVP ONE
== END | disposition home or self-care (01) ==
LOC: SHCH 08:48
PROVIDERS: ATTEND Internal Medicine Cardiovascular Disease
DX: I11.9 Hypertensive heart disease without heart failure (principal)
CPT/HCPCS: 93306

== ENCOUNTER → 2024-02-25 | Outpatient (CLI) | payer OTHER ==
[~2024-02-25] MED LIST changes: +IOHEXOL 350 MG/ML 100ML INFUS..BTL IV ONE; -MECL-160 PO; +MECL-302 PO
== END | disposition home or self-care (01) ==
LOC: RAH 10:23
PROVIDERS: ATTEND Internal Medicine Cardiovascular Disease
DX: I25.10 Atherosclerotic heart disease of native coronary artery without angina pectoris (principal); I25.5 Ischemic cardiomyopathy
CPT/HCPCS: 75574; Q9967 ×2

== ENCOUNTER 2024-03-23 06:44 | Day surgery (SDC) | payer OTHER ==
[2024-03-19 09:59] LABS: BASOPHILS # (AUTO) 0.06 K/uL (0.00-0.20); BASOPHILS % (AUTO) 0.6 % (0.0-5.0); EOSINOPHILS # (AUTO) 0.13 K/uL (0.00-0.70); EOSINOPHILS % (AUTO) 1.3 % (0.0-8.0); HEMATOCRIT 48.5 % (42-54); IMMATURE GRANULOCYTE ABSOLUTE 0.08 K/uL (0-1); LYMPHOCYTES # (AUTO) 2.7 K/uL (1.0-4.8); LYMPHOCYTES % (AUTO) 26.7 % (21.0-51.0); MEAN CORPUSCULAR HEMOGLOBIN 32.2 pg (27.0-33.0); MEAN CORPUSCULAR HGB CONC 35.9 g/dL (32.0-36.0); MEAN CORPUSCULAR VOLUME 89.6 fL (79-99); MONOCYTES # (AUTO) 0.7 K/uL (0.1-1.0); NEUTROPHILS # (AUTO) 6.3 K/uL (1.8-7.7); NEUTROPHILS % (AUTO) 63.6 % (40.0-77.0); PLATELET COUNT (AUTO) 205 K/uL (130-400); RED BLOOD CELL COUNT(AUTO) 5.41 MIL/uL (4.50-6.20); RED CELL DISTRIBUTION WIDTH 13.4 % (11.0-15.5); WHITE BLOOD COUNT (AUTO) 9.9 K/uL (4.8-10.8)
[2024-03-19 10:09] LABS: CREATININE 1.2 mg/dL (0.5-1.3); POTASSIUM 4.3 mmol/L (3.5-5.1)
[2024-03-19 10:11] LABS: INR <= 0.93 (0.85-1.15)
[2024-03-19 10:12] LABS: PARTIAL THROMBOPLASTIN TIME 28.3 SEC (26.3-35.5)
[2024-03-19 10:16] LABS: ADD UA MICROSCOPIC YES
[2024-03-19 10:17] LABS: APPEARANCE,URINE CLEAR (CLEAR); BILIRUBIN,URINE NEGATIVE (NEGATIVE); COLOR,URINE YELLOW (YELLOW); GLUCOSE, URINE (UA) >=1000 mg/dL (NEGATIVE); KETONES,URINE NEGATIVE (NEGATIVE); LEUKOCYTE ESTERASE ,URINE NEGATIVE Leu/uL (NEGATIVE); NITRATE,URINE NEGATIVE (NEGATIVE); OCCULT BLOOD,URINE NEGATIVE (NEGATIVE); PH,URINE 5.5 (5.0-8.0); PROTEIN,URINE 30 mg/dL (NEGATIVE); RBC,URINE 0-1 /HPF (0-1); SQUAMOUS EPITHELIAL CELL,UR RARE /HPF (0-2); UROBILINOGEN,URINE 0.2 mg/dL (0.2-1.0); WBC,URINE 0-1 /HPF (0-1)
[2024-03-19 10:27] LABS: B-TYPE NATRIURETIC PEPTIDE 94 pg/mL (0-100)
[2024-03-19 10:37] VITALS: BP 154/74; PULSE 65; RESP 18
[2024-03-23] VITALS (10 sets, daily range): BP systolic 144–180; BP diastolic 75–91; PULSE 59–65; RESP 12–19
[~2024-03-23] VITALS: Ht 188 cm; Wt 105.2 kg
[~2024-03-23 06:44] MED LIST changes: -ACET-2079 PO; -ALBU90AE2 IH; -AZIT250T9 PO; +EMPA25TA PO; -GLIP5TAB15 PO; -IOHEXOL 350 MG/ML 100ML INFUS..BTL IV ONE; -ISOS10TA8 PO; +ISOS30TA92 PO; +LISI20TA24 PO; -MECL-302 PO; +METF-444 PO; -METF-446 PO; -PROP150T28 PO; +PROP225T3 PO; -TRAZ-187 PO; +TRAZ150T79 PO
[2024-03-23] MEDS: 0.9%NACL 1000ML 1,000 ML IV ONE (07:25)
[2024-03-23] MEDS ORDERED: BIVALIRUDIN 250 MG/VIAL IV ONE (07:48)
[2024-03-23] MEDS ORDERED: LIDOCAINE HCL 400MG/20ML VIAL ONE (07:48)
[2024-03-23] MEDS ORDERED: HEPARIN 10,000 UNIT/10ML (1,000 UNIT/ML) VIAL ONE (07:49)
[2024-03-23] MEDS ORDERED: IOHEXOL 350 MG/ML 100ML INFUS..BTL IV ONE (07:49)
[2024-03-23] MEDS ORDERED: MIDAZOLAM HCL 1 MG/ML 2ML VIAL ONE (08:14)
[2024-03-23] MEDS ORDERED: IOHEXOL-350 50ML VIAL IV ONE (08:20)
[2024-03-23] MEDS ORDERED: GLUCAGON 1MG KIT 1 MG ML IM PRN (09:00)
[2024-03-23] MEDS ORDERED: DEXTROSE 50%-WATER 50 ML DISP.SYRIN IV PRN (09:00)
[2024-03-23] MEDS: INSULIN HUMULIN R 100 UNIT/ML 3ML SQ ONE (09:12)
== END 2024-03-23 13:00 | disposition home or self-care (01) ==
LOC: DAH 06:44
PROVIDERS: ATTEND Internal Medicine Cardiovascular Disease
DX: R94.39 Abnormal result of other cardiovascular function study (principal); I25.119 Atherosclerotic heart disease of native coronary artery with unspecified angina pectoris; E78.5 Hyperlipidemia, unspecified; I10 Essential (primary) hypertension; E11.9 Type 2 diabetes mellitus without complications; Z88.0 Allergy status to penicillin; Z82.49 Family history of ischemic heart disease and other diseases of the circulatory system; Z83.3 Family history of diabetes mellitus; Z82.5 Family history of asthma and other chronic lower respiratory diseases; Z72.89 Other problems related to lifestyle; Z79.84 Long term (current) use of oral hypoglycemic drugs; Z79.82 Long term (current) use of aspirin; Z79.899 Other long term (current) drug therapy; Z98.890 Other specified postprocedural states
CPT/HCPCS: 80048; 83880; 85025; 85610; 85730; 81001; 36415; 71045; 93005; 93458; 93571; 82948 ×2; J1815; C1887; C1894; C1760; C1769; Q9965; J3490; J7030; J2250; J1644; Q9967 ×2; A4215; A4222; A4221; A4663; A4216; A4606; A4223 ×3; 99156; 99157; J0583

== ENCOUNTER 2024-09-22 01:20 | Emergency (ER) | payer OTHER, MEDICARE ==
[~2024-09-22] VITALS: Ht 188 cm; Wt 103.9 kg
[2024-09-22 01:23] VITALS: BP 172/89; PULSE 64; RESP 20; TEMP 98.1
--- NOTE | 2024-09-22 01:42 | ERN ---
ED Note History of Present Illness Stated Complaint: C/O PAIN TO BACK; "PINS MIGHT BE LOOSE" Chief Complaint: Back Pain-No Injury Time Seen by MD: :24 Time Seen by Midlevel: :24 Dictation: 64-year-old male presents to the emergency department due to reported having pain to the lower back that began just prior to arrival. He states that he was lying down in bed and when he moved he felt like his the metal hardware was poking his spine. At this time, he rates the pain at a 10/10. He states that he has had the chronic back problems for which the ID is following up with them. At this time, he denies having any loss of bowel or bladder. Patient was noted to be ambulatory per use of cane and at this time he denies having any numbness sensation to the groin area. Upon initial evaluation, the patient presents in no acute distress. 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 03/20/24 Trazodone HCl (Trazodone HCl) 150 Mg Tablet, 150 MG PO HS, TAB 03/20/24 Sertraline HCl (Sertraline HCl) 50 Mg Tablet, 50 MG PO HS, TAB 05/30/22 Aspirin (Aspirin) 81 Mg Tab.chew, 81 MG PO BID, TAB.CHEW 05/30/22 Loratadine (Loratadine) 10 Mg Tablet, 10 MG PO AM, TAB 05/30/22 Tramadol Hcl (Tramadol HCl) 50 Mg Tablet, 50 MG PO AD PRN for SEVERE PAIN (7- 10), TAB 05/30/22 Metoprolol Succinate (Metoprolol Succinate) 100 Mg Tab.er.24h, 100 MG PO HS, TAB 05/30/22 Buspirone HCl (Buspirone HCl) 15 Mg Tablet, 15 MG PO BID, TAB 05/30/22 Past Medical History Past Medical History: A-Fib, Diabetes-Type II, High Cholesterol, Hypertension Surgical History: Other Surgical History Other: BACK SX(2019); LEFT KNEE SX RN Note Reviewed/Agreed w/PFSH: Yes Review of System Dictation Back: Low back pain Initial Vital Sign VS Vital Signs Date Time Temp Pulse Resp B/P (MAP) Pulse Ox O2 Delivery O2 Flow Rate FiO2 09/22/24 01:23 98.1 64 20 172/89 97 Room Air Physical Exam Dictation General: awake, alert, NAD Head/Face: Normocephalic, atraumatic Eyes: PERRL, EOMI ENT: Oral mucosa moist Neck: Trachea midline, supple Cardiovascular: RRR, no edema Respiratory: Symmetrical, non-labored Abdomen: Soft, non-tender, non-distended, no Skin: Warm, dry, good turgor, no rash MS/Extremity: No cyanosis, neurovascular intact, FROM Neuro: COAx4, GCS 15, steady gait, Psych: Normal behavior, mood, and affect normal Results (Laboratory/Radiology) X-RAY Comment: Three-view x-ray of the lumbar spine with metal were present and no cortical anomalies as interpreted by me. ED Course ED Course Orders Procedure Category Date Status Time Lumbar Spine 2-3vws RAD 09/22/24 Taken 01:36 Ketorolac PHA 09/22/24 Complete Tromethamine 30mg/Ml 02:00 Dexamethasone 4mg/Ml PHA 09/22/24 Complete 1ml Vial (Dexametha 02:00 Lidocaine (Lidoderm PHA 09/22/24 Complete Patch 5%) 02:00 Current Medications Medications (Trade) Dose Ordered Sig/Nehemias Route PRN Reason Start Time Stop Time Status Last Admin Dose Admin Dexamethasone Sodium Phosphate (dexaMETHasone 4MG/ML 1ML VIAL) 8 mg ONCE ONCE IM 09/22/24 02:00 09/22/24 02:01 DC 09/22/24 01:44 Ketorolac Tromethamine (toRADol) 15 mg ONCE ONCE IM 11/5/24 02:00 09/22/24 02:01 DC 09/22/24 01:45 Lidocaine (Lidoderm Patch 5%) 1 patch ONCE ONCE TP 09/22/24 02:00 09/22/24 02:01 DC 09/22/24 01:44 Vital Signs Date Time Temp Pulse Resp B/P (MAP) Pulse Ox O2 Delivery O2 Flow Rate FiO2 09/22/24 01:23 98.1 64 20 172/89 97 Room Air Medical Decision Making MDM MDM: Differential diagnosis: Lumbar sprain, chronic back pain, sciatica. Rationale: Tests considered and ordered secondary to shared decision making include: Previous outside records reviewed: Old ER visits. Risk of complication and/or morbidity or mortality of patient management: None Medications-Per medication reconciliation Need for hospitalization: Patient does not meet criteria for hospitalization. Need for emergency major/minor surgery: No There are no social concerns with this patient. Prescription drug management Prescriptions will include symptomatic care Patient's prior external medical records from other ER visits were reviewed by me as indicated. Prior testing and results from previous visits were reviewed. Prior tests were taken into account with medical decision making and resource utilization, independent historian/historians were used to obtain complete medical history. I independently interpreted the test that were performed, results were reviewed by me and considered findings on radiology if ordered. Medical management and examination interpretation discussions were had by me with other qualified healthcare professionals as indicated for the patient's care. DX & DISP Disposition: Discharge Departure Impression: Primary Impression: Lumbar back sprain Additional Impression: History of chronic back pain Condition: Stable Referrals: LUIS CYR (PCP) I have reviewed the case, and I agree with, Diagnosis and Plan RADHA BULLARD Sep 22, 2024 01:42
[2024-09-22] MEDS: dexaMETHasone SOD PHOSPHATE 4 MG/ML 1ML VIAL IM ONE (01:44)
[2024-09-22] MEDS: LIDOCAINE 5% TOPICAL PATCH TP ONE (01:44)
[2024-09-22] MEDS: ketOROlac 30MG VIAL (30MG/ML) IM ONE (01:45)
--- NOTE | 2024-09-22 09:53 | HMCIMG ---
LUMBAR SPINE 2-3VWS HISTORY: Status post fall COMPARISON: None FINDINGS: 3 images of lumbar spine were obtained. Orthopedic fixation plates and screws are seen traversing the L3, L4 and L5 levels. Vascular calcifications are seen. There are degenerative changes with lumbar spine spondylosis. There is straightening of normal lordotic curvature which may be related to muscle spasm or positioning. No loss of vertebral height is seen. No fracture or dislocation is seen. Degenerative changes are seen. IMPRESSION: 1. No fracture is seen. DJD with lumbar spine spondylosis and postop changes.
== END 2024-09-22 02:58 | disposition home or self-care (01) ==
LOC: EDH 01:20
DX: S33.5XXA Sprain of ligaments of lumbar spine, initial encounter (principal); I48.91 Unspecified atrial fibrillation; E11.9 Type 2 diabetes mellitus without complications; E78.00 Pure hypercholesterolemia, unspecified; I10 Essential (primary) hypertension; Z79.82 Long term (current) use of aspirin; Z79.84 Long term (current) use of oral hypoglycemic drugs; Z79.899 Other long term (current) drug therapy; Z88.0 Allergy status to penicillin; X58.XXXA Exposure to other specified factors, initial encounter; Y93.89 Activity, other specified; Y92.89 Other specified places as the place of occurrence of the external cause; Y99.8 Other external cause status
CPT/HCPCS: 99284; 72100; 96372 ×2; J1100; J1885

== ENCOUNTER → 2024-12-03 | Outpatient (CLI) | payer OTHER ==
--- NOTE | 2024-12-04 08:17 | HMCSR ---
APPROVED REPORT Laterality: Bilateral Indications i25.10 Doppler Spectral Velocity Analysis PSV / EDVPSV / EDV ECA (R) 85 / cm/sECA (L) 76 / cm/s dICA (R) 62 / 22 cm/sdICA (L) 76 / 31 cm/s Arcelia (R) 63 / 21 cm/smICA (L) 71 / 26 cm/s pICA (R) 56 / 23 cm/spICA (L) 60 / 17 cm/s dCCA (R) 65 / 22 cm/sdCCA (L) 64 / 13 cm/s mCCA (R) 74 / 16 cm/smCCA (L) 75 / 19 cm/s pCCA (R) 74 / 17 cm/spCCA (L) 74 / 14 cm/s Vert (R) 35 / cm/sVert (L) 30 / cm/s Subl. (R) 98 / cm/sSubl. (L) 94 / cm/s ICA/CCA 0.85ICA/CCA 1.01 Technologist Impression Minimal to mild plaque noted in the bilateral carotids, without hemodynamic significance. Bilateral v ertebral arteries appear antegrade. Conclusion Minimal plaque noted in the bilateral carotids, without hemodynamic significance. Bilateral vertebral arteries appear antegrade. Conclusion Minimal plaque noted in the bilateral carotids, without hemodynamic significance. Bilateral vertebral arteries appear antegrade.
== END | disposition home or self-care (01) ==
LOC: SHCH 14:58
PROVIDERS: ATTEND Internal Medicine Cardiovascular Disease
DX: I65.23 Occlusion and stenosis of bilateral carotid arteries (principal); I25.10 Atherosclerotic heart disease of native coronary artery without angina pectoris
CPT/HCPCS: 93880

== ENCOUNTER 2025-11-15 11:48 | Emergency (ER) | payer OTHER ==
[~2025-11-15] VITALS: Ht 188 cm; Wt 92.5 kg
[~2025-11-15 11:48] MED LIST changes: -PROP225T3 PO; +PROP225T8 PO
[2025-11-15 12:12] LABS: IMMATURE GRANULOCYTE ABSOLUTE 0.09 K/uL (0-1); NUCLEATED RED BLOOD CELLS 0.0 % (0.0-0.19); PLATELET COUNT (AUTO) 214 K/uL (130-400); RED BLOOD CELL COUNT(AUTO) 4.86 MIL/uL (4.50-6.20); RED CELL DISTRIBUTION WIDTH 14.1 % (11.0-15.5); WHITE BLOOD COUNT (AUTO) 13.3 K/uL (4.8-10.8)
--- NOTE | 2025-11-15 12:13 | EKG ---
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
[2025-11-15 12:21] LABS: CREATININE 1.5 mg/dL (0.5-1.3); GLOMERULAR FILTR. RATE CALC 51.0 mL/min (>90); GLUCOSE,RANDOM 130.0 mg/dL (70-105); SODIUM SERUM 139.0 mmol/L (136-145); UREA NITROGEN, BLOOD 14.0 mg/dL (7-18)
--- NOTE | 2025-11-15 12:56 | HMCIMG ---
EXAM: CR Chest, 1 View. CLINICAL HISTORY: SOB COMPARISON: None provided. FINDINGS: LUNGS: The lungs show no infiltrate or other acute finding. PLEURAL SPACES: No pleural effusion or pneumothorax. MEDIASTINUM: Cardiac size and mediastinal contours within normal limits. Rhythm monitoring device at the left lung base. BONES: No aggressive appearing osseous lesion seen. IMPRESSION: No acute cardiopulmonary pathology is evident. /[place]
--- NOTE | 2025-11-15 13:16 | NUR ---
VITALS SIGNS BEFORE WALKIN/48 VITALS SIGNS AFTER WALK: 109/59 DR. REID MADE AWARE
[2025-11-15] MEDS ORDERED: 0.9%NACL 1000ML 1,000 ML IV ONE (14:00)
--- NOTE | 2025-11-15 14:28 | ERN ---
General Chief Complaint: Hypotension Stated Complaint: HYPOTENSION Time Seen by MD: 11:52 Source: patient History of Present Illness Initial Comments Mr. Abreu, 65 M came to the ER with dizziness and weakness since 3 days. He reports continuous [facility] blood [facility] like [facility] 60/30s associated with dizziness and spinning sensations which prompted him to come to the ER. Reports no recent fall/syncope/nausea/vomiting/diarrhea. Reports no other complaints. HE IS ON lisinopril 20 mg twice a day, metoprolol, nitroglycerin, furosemide for high blood pressure. Reports he recently lost a bit of weight and there was no medication adjustment done. Timing/Duration: constant Severity: mild Allergies: Coded Allergies: Penicillins (Unverified Allergy, Unknown, 07/28/21) Home Meds Reported Medications Atorvastatin Calcium (LIPITOR) 10 Mg Tab, 10 MG PO HS, TAB 03/20/24 Lisinopril (Lisinopril) 20 Mg Tablet, 20 MG PO BID, TAB 03/20/24 Empagliflozin (Jardiance) 25 Mg Tablet, 25 MG PO DAILY, TAB 03/20/24 Isosorbide Mononitrate (Isosorbide Mononitrate ER) 30 Mg Tab.er.24h, 30 MG PO DAILY, TAB 03/20/24 Propafenone HCl (Propafenone HCl) 225 Mg Tablet, 225 MG PO BID, TAB 03/20/24 Metformin HCl (Metformin HCl) 500 Mg Tablet, 500 MG PO BID, TAB START METFORMIN ON 03/24/24. 03/20/24 Trazodone HCl (Trazodone HCl) 150 Mg Tablet, 150 MG PO HS, TAB 03/20/24 Sertraline HCl (Sertraline HCl) 50 Mg Tablet, 50 MG PO HS, TAB 05/30/22 Aspirin (Aspirin) 81 Mg Tab.chew, 81 MG PO BID, TAB.CHEW 05/30/22 Loratadine (Loratadine) 10 Mg Tablet, 10 MG PO AM, TAB 05/30/22 Tramadol Hcl (Tramadol HCl) 50 Mg Tablet, 50 MG PO AD PRN for SEVERE PAIN (7- 10), TAB 05/30/22 Metoprolol Succinate (Metoprolol Succinate) 100 Mg Tab.er.24h, 100 MG PO HS, TAB 05/30/22 Buspirone HCl (Buspirone HCl) 15 Mg Tablet, 15 MG PO BID, TAB 05/30/22 Past Medical History Past Medical History: Diabetes-Type II, High Cholesterol, Hypertension, Other Medical History Other: CARPAL TUNNEL. CARDIAC ARRHYTHMIA, INSOMNIA Past Surgical History: Tonsillectomy, Other Surgical History Other: BILATERAL CARPAL TUNNEL, VASECTOMY. Constitutional: (+) malaise Neuro: (+) dizziness Psych: (+) depression Review of Systems: was completed, & the rest were negative. Physical Exam General Appearance: (+) no apparent distress Orientation: (+) alert, (+) oriented x 3 Head/Face Trauma: No Eye: bilateral eye normal inspection Ear, Nose, Throat: (+) hearing grossly normal Neck: (+) normal inspection Respiratory: (+) chest non-tender, (+) lungs clear, (+) well ventilated Heart: (+) regular, (+) no gallop Vascular: (+) no edema Gastrointestinal: (+) soft, (+) non-tender Genital: (+) deferred Rectal: (+) deferred Extremities: (+) normal range of motion, (+) non-tender, (+) normal inspection Neurologic/Psychiatric: (+) normal speech, (+) no motor defecits, (+) no sensory deficits Skin: (+) normal color Results Laboratory and Microbiology Lab and Micro Result Laboratory Tests Test 11/15/25 12:07 White Blood Count 13.3 K/uL (4.8-10.8) H Red Blood Count 4.86 MIL/uL (4.50-6.20) Hemoglobin 14.8 g/dL (14.0-18.0) Hematocrit 42.8 % (42-54) Mean Corpuscular Volume 88.1 fL (79-99) Mean Corpuscular Hemoglobin 30.5 pg (27.0-33.0) Mean Corpuscular Hemoglobin Concent 34.6 g/dL (32.0-36.0) Red Cell Distribution Width 14.1 % (11.0-15.5) Platelet Count 214 K/uL (130-400) Mean Platelet Volume 9.5 fL (7.5-10.5) Immature Granulocyte % (Auto) 0.7 % (0-1) Neutrophils (%) (Auto) 69.8 % (40.0-77.0) Lymphocytes (%) (Auto) 19.7 % (21.0-51.0) L Monocytes (%) (Auto) 8.2 % (3.0-13.0) Eosinophils (%) (Auto) 1.3 % (0.0-8.0) Basophils (%) (Auto) 0.3 % (0.0-5.0) Neutrophils # (Auto) 9.3 K/uL (1.8-7.7) H Lymphocytes # (Auto) 2.6 K/uL (1.0-4.8) Monocytes # (Auto) 1.1 K/uL (0.1-1.0) H Eosinophils # (Auto) 0.17 K/uL (0.00-0.70) Basophils # (Auto) 0.04 K/uL (0.00-0.20) Absolute Immature Granulocyte (auto 0.09 K/uL (0-1) Nucleated Red Blood Cells 0.0 % (0.0-0.19) Sodium Level 139 mmol/L (136-145) Potassium Level 3.6 mmol/L (3.5-5.1) Chloride Level 104 mmol/L (101-111) Carbon Dioxide Level 27 mmol/L (21-32) Blood Urea Nitrogen 14 mg/dL (7-18) Creatinine 1.5 mg/dL (0.5-1.3) H Glomerular Filtration Rate Calc 51 mL/min (>90) Random Glucose 130 mg/dL (70-105) H Total Calcium 8.9 mg/dL (8.5-10.1) Troponin I High Sensitivity 13 ng/L (4-75) B-Type Natriuretic Peptide 34 pg/mL (0-100) MDM Differential diagnosis: Symptomatic hypotension The patient came to the ER due to dizziness, weakness since 3 days and low blood pressure readings at the clinic like 60/30s Rationale: This consult and ordered secondary to share decision-making include CBC, BMP, EKG, chest x-ray Previous outside records reviewed: Old ER visits Medications-per medication reconciliation In the ER the patient received 1 L NS bolus Need for hospitalization: Patient does not meet criteria for hospitalization. Patient's blood pressure improved to 118/68, dizziness improved and can be discharged home Need for emergency major/minor surgery: No There are no social concerns with this patient Prescription drug management Description we will include symptomatic care I independently interpreted the test that were performed, results were reviewed by me and considered finding from Radiology ordered Medical management and examination interpretation discussions were had by me with other qualified health caretaker grounds as indicated for the patient's care ED Course Orders Procedure Category Date Status Time Cbc With Differential LAB 11/15/25 Complete 11:57 Basic Metabolic Panel LAB 11/15/25 Complete 11:57 12 Lead Ekg Tracing- EKG 11/15/25 Complete Technical 11:57 Troponin I High LAB 11/15/25 Complete Sensitivity 11:57 B-Type Natriuretic LAB 11/15/25 Complete Peptide 11:57 Chest 1vw RAD 11/15/25 Resulted 11:57 0.9%Nacl 1000ml (Ns PHA 11/15/25 Complete 1000ml) 14:00 Current Medications Medications (Trade) Dose Ordered Sig/Nehemias Route PRN Reason Start Time Stop Time Status Last Admin Dose Admin Sodium Chloride 1,000 ml @ 0 mls/hr ONCE ONCE IV 11/15/25 14:00 11/15/25 14:27 DC Vital Signs Date Time Temp Pulse Resp B/P (MAP) Pulse Ox O2 Delivery O2 Flow Rate FiO2 11/15/25 13:17 98.1 56 16 109/59 99 Room Air* 0 21 11/15/25 12:26 56 16 102/51 99 Room Air* 0 21 11/15/25 11:50 98.1 62 16 117/100 99 Room Air 0 DX & DISP Disposition: Discharge Departure Impression: Primary Impression: Symptomatic hypotension Critical Time: 60 minutes Condition: Improved Additional Instructions: You were seen today for low blood pressure causing dizziness, likely related to your blood pressure medications. Do not take any of your blood pressure medications for the next 24 hours. If the blood pressure increases too much then take lisinopril 20 mg once Consult primary care physician immediately in 1-2 days for medication adjustment Do not restart medications on your own if the dizziness or low readings continue Check your blood pressure twice daily, sit and rest for 5 minutes before checking, keep a log of readings to show to your doctor. If systolic blood pressure is less than 90 mmHg or you feel dizzy, lightheaded, or weak, do not take blood pressure medications and seek medical advice Drink plenty of fluids, stand up slowly from sitting or lying down, avoid sudden position changes, avoid alcohol for the next 24-48 hours Avoid driving, climbing, or operating heavy machinery until dizziness improves Return to ER if you have fainting or near fainting, chest pain or shortness of breath, confusion or weakness, persistent vomiting or inability to keep fluids down, blood pressure consistently less than 90/60 or worsening dizziness despite holding medications BENNY KOVACS MD Nov 15, 2025 14:28 TURNER REID MD Nov 15, 2025 14:30
[2025-11-15 14:34] VITALS: BP 109/63; PULSE 56; RESP 16; TEMP 98.1; O2SAT 99
--- NOTE | 2025-11-15 14:42 | NUR ---
DISCHARGE: PT USING AMBULATORY AID. PT HAS A STABLE AND STEADY GAIT. NO SYMPOTOMS OR SIGN OF DISTRESS SHOWN AT THIS TIME. BY PATIENT'S SIDE.
== END 2025-11-15 14:44 | disposition home or self-care (01) ==
LOC: EDH 11:48
DX: I10 Essential (primary) hypertension (principal); E11.9 Type 2 diabetes mellitus without complications; E78.00 Pure hypercholesterolemia, unspecified; Z79.82 Long term (current) use of aspirin; Z79.84 Long term (current) use of oral hypoglycemic drugs; Z79.899 Other long term (current) drug therapy; Z88.0 Allergy status to penicillin; Z90.89 Acquired absence of other organs
CPT/HCPCS: 36415; 71045; 80048; 83880; 84484; 85025; 93005; 99285